=== PATIENT | male | born 1950 | race Caucasian/White ===

== ENCOUNTER 2021-10-31 11:23 | Outpatient (CLI) | payer MEDICARE, SELFPAY ==
--- NOTE | ~2021-10-31 | US_ITS ---
EXAMINATION: US venous doppler LE RT DATE: 10/31/2021 11:53 INDICATION: Right lower limb pain and swelling TECHNIQUE: Grayscale ultrasound images without and with compression and Doppler ultrasound images of the right lower extremity veins were obtained. COMPARISON: None. FINDINGS: The visualized portions of right common femoral vein, profunda (deep) femoral vein, femoral vein, pop liteal vein, peroneal trunk, posterior tibial veins, peroneal veins, gastrocnemius vein and greater s aphenous vein outflow are patent. 2.4 x 1.2 x 0.4 cm lenticular fluid collection at the right poplite al fossa. No abnormal masses or fluid collections identified in the anterior right lower leg in the r egion of reported bruising. IMPRESSION: 1. No deep venous thrombosis in the right lower limb. 2. 2.4 x 1.2 x 0.4 cm lenticular fluid collection at the right popliteal fossa most likely a small Ba ker's cyst with differential including hematoma. Reviewed, dictated and finalized at location B. IMPRESSION: 1. No deep venous thrombosis in the right lower limb. 2. 2.4 x 1.2 x 0.4 cm lenticular fluid collection at the right popliteal fossa most likely a small El's cyst with differential including hematoma.
== END 2021-10-31 11:24 | disposition home or self-care (01) ==
PROVIDERS: PCP Family Medicine Adolescent Medicine; Visit Provider Family Medicine Adolescent Medicine
DX: R60.0 Localized edema (principal)
CPT/HCPCS: 93971

== ENCOUNTER 2023-03-15 07:40 | Inpatient (IN) | payer MEDICARE, SELFPAY ==
[2023-03-15] VITALS (16 sets, daily range): BP systolic 139–181; BP diastolic 82–114; PULSE 52–60; RESP 14–21; TEMP 36.6–37.1; O2SAT 94–98
--- NOTE | ~2023-03-15 | MR_ITS ---
MRI of the brain Clinical History: Expressive aphasia Technique: Axial and sagittal T1-weighted images were acquired. These were followed by axial T2-weigh jean, diffusion weighted, gradient, and FLAIR images. Following intravenous administration of 20 cc Mu ltiHance gadolinium, T1-weighted fat-sat imaging was performed in the axial and coronal planes. Findings: There are wedge-shaped areas of restricted diffusion in the left frontal lobe near the ante rior insular cortex, and in the left parietal lobe. These are consistent with acute infarct. No intra cranial hemorrhage evident. There are mild background chronic microvascular ischemic changes in the p eriventricular white matter. Ventricles and subarachnoid spaces are unremarkable. Orbits are unremarkable. Paranasal sinuses and m astoid air cells are clear. Major intracranial flow voids are intact. Sagittal midline structures are intact. No abnormal postcontrast enhancement identified. 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 No intracranial hemorrhage. Mild background chronic microvascular ischemic change. Reviewed, dictated and finalized at location M. R AND CHASSIS INSPECTOR
--- NOTE | ~2023-03-15 | XR_ITS ---
EXAMINATION: XR chest 1V portable INDICATION: Confusion, stroke like symptoms TECHNIQUE: Portable AP chest at 0855 hours COMPARISON: None available FINDINGS: There are minimal airspace opacities of the left lung base. No pleural effusion or pneumoth orax. The cardiomediastinal silhouette is normal. IMPRESSION: 1. Left basilar airspace opacity, consistent with atelectasis versus pneumonia. Reviewed, dictated and finalized at location B. SERVICE WAITER/WAITRESS
--- NOTE | ~2023-03-15 | CT_ITS ---
CT ANGIOGRAM NECK AND HEAD History: CVA. Technique: Axial noncontrast imaging of the brain was performed. Serial spiral axial images through t he head and neck were then obtained during arterial phase IV injection of 100 cc of Omnipaque 350. 3- D postprocessing and MIP images were then reconstructed on the remote workstation. Dose reduction wilmer hnique was used on this scan by utilizing automated exposure control and iterative reconstruction wilmer hnique. The dose-length product (DLP) was 1835.58 mGy-cm. CTA neck findings: Bilateral vertebral arteries are patent, with right vertebral artery terminating as the right PICA, normal variant. Bilateral common carotid, internal carotid, and external carotid a rteries are patent. No large vessel occlusion. No stenosis or aneurysm. The proximal right internal c arotid artery demonstrates 0% stenosis relative to the normal distal artery lumen diameter. The proxi mal left internal carotid artery demonstrates 0% stenosis relative to the normal distal artery lumen diameter. Partially imaged small left pleural effusion present. CTA head findings: Distal vertebral arteries, basilar artery, and posterior cerebral arteries are pat ent. Distal internal carotid arteries, middle cerebral arteries, and anterior cerebral arteries are p atent. No large vessel occlusion. No stenosis or aneurysm. Axial noncontrast imaging of the brain is unremarkable. No intracranial hemorrhage, mass lesion, or a cute infarct identified. Humphreys-white differentiation is preserved. Ventricles and subarachnoid spaces are nondilated. Paranasal sinuses and mastoid air cells are clear. Impression: Unremarkable CTA of the head and neck. Unremarkable noncontrast CT of the brain. Partially imaged small left pleural effusion. Case discussed with Dr. Dickerson at 8:23 AM on 03/15/2023. Reviewed, dictated and finalized at location M. AL COMMUNICATIONS INSTRUCTOR Impression: Unremarkable CTA of the head and neck. Unremarkable noncontrast CT of the brain. Partially imaged small left pleural effusion. Case discussed with Dr. Dickerson at 8:23 AM on 03/15/2023.
--- NOTE | 2023-03-15 07:50 | ECG_ITS ---
Measurements Intervals [place] Rate: 56 P: 66 [place]: 311 QRS: -29 QRSD: 100 T: 47 QT: 436 QTc: 421 Interpretive Statements SINUS BRADYCARDIA WITH MARKED FIRST DEGREE AV BLOCK BORDERLINE R WAVE PROGRESSION, ANTERIOR LEADS ABNORMAL ECG NO PREVIOUS ECG AVAILABLE FOR COMPARISON Electronically Signed On 03-15-2023 10:03:00 EYEGLASS MAKER by Torey Stahl D.O.
--- NOTE | 2023-03-15 07:59 | ED.GENADULT ---
HPI - General Adult General Chief complaint: Suspected CVA Stated complaint: high blood pressure/confusion Time Seen by Provider: 03/15/23 07:49 History of Present Illness HPI narrative: Patient is a 72-year-old male who presents to the ER with new confusion. Last known well was 10 PM on 03/14/2023. 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 He has occasional speech that does not make sense for the situation. His work called at 6:30 AM and told his that he was too confused to be there so she went and picked him up and brought him here. Patient is not on any blood thinners other than a baby aspirin. He cannot provide a history. Related Data Home Medications Medication Instructions Recorded Confirmed aspirin 81 mg tablet,delayed 81 mg PO DAILY 10/09/21 03/15/23 release (Adult Aspirin Regimen) omeprazole 20 mg tablet,delayed 20 mg PO DAILY 10/09/21 03/15/23 release amlodipine 5 mg tablet 5 mg PO DAILY 03/15/23 03/15/23 atorvastatin 40 mg tablet 40 mg PO DAILY 03/15/23 03/15/23 doxazosin 4 mg tablet 4 mg PO DAILY 03/15/23 03/15/23 hydrochlorothiazide 25 mg tablet 25 mg PO DAILY 03/15/23 03/15/23 metformin 500 mg tablet,extended 500 mg PO DAILY 03/15/23 03/15/23 release 24 hr metoprolol succinate 100 mg 100 mg PO DAILY 03/15/23 03/15/23 tablet,extended release 24 hr potassium chloride 10 mEq 10 meq PO BID 03/15/23 03/15/23 tablet,extended release(part/cryst) Allergies Allergy/AdvReac Type Severity Reaction Status Date / Time acetazolamide AdvReac Unknown Unknown Verified 03/15/23 08:59 Review of Systems Review of Systems: ROS unobtainable: Yes unobtainable due to medical condition [facility] Past Medical History Medical History (Updated 03/15/23 @ 19:13 by Leon Dickerson MD) Essential (primary) hypertension Obstructive sleep apnea Pure hypercholesterolemia, unspecified Type 2 diabetes mellitus with diabetic polyneuropathy Surgical History Surgical History (Updated 03/15/23 @ 13:43 by Gunjan Morrison PA-C) History of appendectomy History of carpal tunnel release History of cervical spinal surgery (2010) C5 through C7 Family History Family History Father Acute myocardial infarction Lung cancer Mother Diabetes mellitus Social History Social History (Updated 03/15/23 @ 13:44 by Gunjan Morrison PA-C) Social History: Surrogate medical decision maker: Lorna Gray, spouse. Code status: Full code. Smoking status: Never smoker Second hand tobacco smoke exposure: No Alcohol intake: never Substance use: never Substance use type: does not use Lack of Transportation: No Lack of Food: Never True Current Housing: I Have Housing Concerned About Future Housing: No Difficulty Paying Gas/Electric Bills: No Difficulty Paying for Meds: No Currently Unemployed: No Education: High School Diploma/GED Difficulty w/ Childcare or Family Care: No Living arrangements: with family Occupation/Education: retired Spiritual care concerns: No Agree to blood products: Yes Exam Narrative: GENERAL: Well-appearing, well-nourished, and in no acute distress. HEAD: Normocephalic, atraumatic. EYES: PERRLA and EOMI. ENT: Nares clear, no rhinorrhea or epistaxis. Mucous membranes moist. NECK: Supple. CHEST: Clear to auscultation. No respiratory distress. HEART: Regular rate and rhythm. No murmur heard. Normal peripheral pulses. ABDOMEN: Soft, nontender, nondistended, normal active bowel sounds. EXTREMITIES: Normal range of motion. No edema. SKIN: Warm, dry, no rash. NEURO: No focal deficits. Alert and oriented x3. PSYCH: Normal mood and affect. Course Course Emergency Course: Patient resting comfortably. No change in status. Family updated on imaging and lab results. Neurology consulted. Admit to hospitalist service. No large vessel occlusion. Patient is not a
[2023-03-15 08:11] LABS: Estimated Glomerular Filt Rate > 60
--- NOTE | 2023-03-15 08:31 | PC.NURSE ---
RN asked pt his 's name, pt answered reciting numbers. Pt attempting to communicate, replies with reciting of numbers. Unable to open and close eyes on command, rubbing right hand & arm.
[2023-03-15 08:32] LABS: Basophils Percent Auto 0.6 % (0.2-1.2); Eosinophils Absolute Auto 0.2 K/mm3 (0-0.3); Hematocrit 42.3 % (42.0-52.0); Hemoglobin 14.4 g/dL (14.0-18.0); Immature Granulocyte Absolute 0.03 K/mm3 (0.00-0.031); Immature Granulocyte Percent A 0.4 % (0-0.5); Lymphocytes Absolute Auto 0.86 K/mm3 (0.9-3.2); Lymphocytes Percent Auto 11.8 % (18.3-44.2); Mean Corpuscular Hemoglobin 29.5 pg (26-34); Mean Corpuscular Volume 86.7 fl (80-100); Mean Platelet Volume 9.9 fl (7.4-10.4); Monocytes Absolute Auto 0.7 K/mm3 (0.1-0.6); Monocytes Percent Auto 9.2 % (2.6-8.5); Neutrophils Absolute Auto 5.5 K/mm3 (1.3-6.7); Platelet Count Result 185 k/mm3 (150-375); Red Blood Count 4.88 M/mm3 (4.6-6.20); Red Cell Distribution Width 13.6 % (11.5-14.5); White Blood Count 7.3 K/mm3 (4.5-10.0)
[2023-03-15 08:42] LABS: Alanine Aminotransferase 46 U/L (6-50); Albumin Level 4.1 g/dL (3.5-5.1); Alkaline Phosphatase 47 U/L (38-126); Anion Gap 7 mmol/L (8-16); Aspartate Amino Transferase 32 U/L (17-59); Bilirubin,Total 1.1 mg/dL (0.2-1.3); Blood Urea Nitrogen 14 mg/dL (9-20); Carbon Dioxide 28 mmol/L (22-30); Chloride 101 mmol/L (98-107); Estimated CRCL calculation 79 ml/min; Estimated Glomerular Filt Rate > 60; Glucose 139 mg/dL (65-110); Potassium 3.3 mmol/L (3.4-5.0); Sodium 136 mmol/L (137-145)
[2023-03-15 08:43] LABS: INR 1.1; Prothrombin Time 14.8 Seconds (11.1-14.7)
[2023-03-15 08:45] LABS: Partial Thromboplastin Time 68.6 SECONDS (22.3-36.8)
[2023-03-15 08:51] LABS: Appearance Urine Clear (Clear); Bilirubin Urine Negative (Negative); Blood Urine Negative (Negative); Color Urine Yellow (Yellow); Glucose Urine UA Negative (Negative); Ketones Urine Negative (Negative); Leukocyte Esterase Ur Negative LEU/UL (Negative); Nitrate Urine Negative (Negative); Protein Urine Negative (Negative); Specific Grav Ur 1.035 (1.001-1.035); pH Urine 7.5 (5.0-9.0)
[2023-03-15 08:53] LABS: Troponin I < 0.012 ng/mL (0.000-0.034)
--- NOTE | 2023-03-15 09:17 | PC.NURSE ---
Lab called inquiring about UA results. Ana states will be released in a couple of minutes
[2023-03-15 09:18] LABS: Add Urine Microscopic? NO
--- NOTE | 2023-03-15 12:18 | PC.NURSE ---
1115 c/o mild JERNIGAN 06/19, ERP notified
[2023-03-15] MEDS: HYDROcodone/acetaminophen (*CRX) 5-325 MG TABLET 1 TAB PO (12:41)
--- NOTE | 2023-03-15 12:43 | ADMGEN ---
This patient, Bi Gray, was admitted to 2 Medical Room 259-. Patient/family oriented to hospital policies and general routines including ID bracelet, bed and alarms, visiting hours, pain management, procedures, bathroom and other care routines, personal items, smoking policy, room service/diet, and visiting hours. Information on how to activate the Rapid Response Team has been discussed. Patient/Family are encouraged to report perceived risks to care and to ask questions if they do not understand what they are told or what they should do.
--- NOTE | 2023-03-15 13:37 | PM.IMHP ---
H&P: HPI History of Present Illness Date/Time: 03/15/23 14:00 Chief Complaint: Confusion. Narrative: This is a pleasant 72-year-old male with hypertension, hyperlipidemia, type 2 diabetes mellitus, benign prostatic hyperplasia, and gastroesophageal reflux disease who presented to the emergency department via private vehicle accompanied by his for evaluation of confusion. The patient provides the following history and his provides additional information with the patient's permission. He was in his usual state of health when he went to bed last night at approximately 22:00. 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 He drove the less than 1 mi to the farm for work. received a phone call perhaps an hour thereafter stating that she needed to come pick the patient up as he was confused and he was brought in for evaluation. The patient is aware of the apparent confusion he seems to have some component of expressive aphasia. He also complains of numbness and tingling and to some extent some pain in his right hand. He denies vertigo, vision changes, facial droop, difficulty swallowing, and focal weakness. In the ED: He was afebrile on arrival with a blood pressure of 181/114. Labs did not show any significant findings with the only outliers being a sodium of 136, potassium 3.3, glucose 139. Urinalysis was unremarkable. Brain CT and CTA of the head and neck were unremarkable. Chest x-ray showed left basilar airspace opacity consistent with atelectasis versus pneumonia. EKG showed sinus bradycardia with marked first-degree AV block and borderline R-wave progression in the anterior leads. He is being admitted in this setting for further workup. Review of Systems Review of Systems: Twelve systems were reviewed and are negative except for as per HPI. [facility] Past Medical History Medical History (Updated 03/15/23 @ 19:13 by Leon Dickerson MD) Essential (primary) hypertension Obstructive sleep apnea Pure hypercholesterolemia, unspecified Type 2 diabetes mellitus with diabetic polyneuropathy Surgical History Surgical History (Updated 03/15/23 @ 13:43 by Gunjan Morrison PA-C) History of appendectomy History of carpal tunnel release History of cervical spinal surgery (2010) C5 through C7 Family History Family History Father Acute myocardial infarction Lung cancer Mother Diabetes mellitus Social History Social History (Updated 03/15/23 @ 13:44 by Gunjan Morrison PA-C) Social History: Surrogate medical decision maker: Lorna Gray, spouse. Code status: Full code. Smoking status: Never smoker Second hand tobacco smoke exposure: No Alcohol intake: never Substance use: never Substance use type: does not use Lack of Transportation: No Lack of Food: Never True Current Housing: I Have Housing Concerned About Future Housing: No Difficulty Paying Gas/Electric Bills: No Difficulty Paying for Meds: No Currently Unemployed: No Education: High School Diploma/GED Difficulty w/ Childcare or Family Care: No Living arrangements: with family Occupation/Education: retired Spiritual care concerns: No Agree to blood products: Yes Meds Home Medications and Allergies Home Medications Medication Instructions Recorded Confirmed Type aspirin 81 mg tablet,delayed 81 mg PO DAILY 10/09/21 03/15/23 History release (Adult Aspirin Regimen) omeprazole 20 mg tablet,delayed 20 mg PO DAILY 10/09/21 03/15/23 History release diclofenac sodium 75 mg 75 mg PO BID #180 tabs 10/17/22 03/15/23 Rx tablet,delayed release amlodipine 5 mg tablet 5 mg PO DAILY 03/15/23 03/15/23 History atorvastatin 40 mg
[2023-03-15 14:31] LABS: Hemoglobin A1C 6.5 % (<5.7)
[2023-03-15 14:42] LABS: Ammonia < 9 umol/L (9-30)
[2023-03-15] MEDS: SODIUM CHLORIDE 0.9% IV 1,000 ML 100 ML IV CONT (14:48)
[2023-03-15] MEDS: POTASSIUM CHLORIDE 20 MEQ ER TABLET PO (14:48)
[2023-03-15 15:28] LABS: Folic Acid 19.1 ng/mL (2.76->20)
[2023-03-15 17:06] LABS: Glucose Point of Care 124 mg/dl (65-105)
[2023-03-15 20:54] LABS: Glucose Point of Care 129 mg/dl (65-105)
[2023-03-16] VITALS (11 sets, daily range): BP systolic 140–164; BP diastolic 76–86; PULSE 56–68; RESP 16–18; TEMP 36.6–36.8; O2SAT 96–97
--- NOTE | 2023-03-16 | ECHO_ITS ---
Patient Info Name: Bi Gray Age: 72 years : 1950 Gender: Male Ht: 73 in Wt: 249 lbs BSA: 2.44 m2 HR: 67 bpm BP: 150 / 84 mmHg Heart Rhythm: Sinus Rhythm Technical Quality: Good Exam Date: 03/16/2023 11:18 AM Exam Location: Echo Lab Patient Status: Outpatient Admit Date: 03/15/2023 Staff Ordering Physician: Gunjan Morrison PA-C Tobacco Grower: Shala Alfredo RDCS Attending Provider: Zach Su MD Referring Physician: Tamiko WAN; Exam Type: CA echo doppler w bubble study Study Info Indications - expressive aphasia, HTN Complete two-dimensional, color flow and Doppler transthoracic echocardiogram is performed. Summary 1. Complete two-dimensional, color flow and Doppler transthoracic echocardiogram is performed. 2. Left ventricular chamber dimension is normal. 3. Left ventricular systolic function is normal, estimated at 60-65%. 4. There is mildly increased left ventricular wall thickness. 5. The left ventricular diastolic function is grade III diastolic dysfunction. 6. Right ventricular systolic function is normal. 7. There is mild mitral valve regurgitation. 8. There is trivial pericardial effusion. Left Ventricle Left ventricular chamber dimension is normal. Left ventricular systolic function is normal, estimated at 60-65%. There is mildly increased left ventricular wall thickness. The left ventricular diastolic function is grade III diastolic dysfunction. Right Ventricle Right ventricular chamber dimension is normal. Right ventricular systolic function is normal. Left Atria Left atrial chamber dimension is normal. Right Atria Right atrial chamber dimension is normal. Atrial Septum Intact interatrial septum visualized by color flow and agitated saline imaging. Aortic Valve The aortic valve is not well visualized. There is no aortic valve stenosis. There is no aortic valve regurgitation. There is mild aortic valve calcification. Pulmonic Valve The pulmonic valve is not well visualized. Mitral Valve There is mild mitral valve regurgitation. Tricuspid Valve There is trace tricuspid valve regurgitation. Pericardium/Pleural There is trivial pericardial effusion. Inferior Vena Cava Normal inferior vena cava with >50% collapse upon inspiration consistent with normal right atrial pressure, 3 mmHg. Aorta The aortic root size at the sinus of Valsalva is normal. Left Ventricular Outflow Tract Name Value Normal LVOT 2D LVOT Diameter 1.9 cm LVOT Doppler LVOT Peak Gradient 4 mmHg LVOT Mean Gradient 3 mmHg LVOT VTI 23 cm LVOT VTI/AV VTI Ratio 0.9 LVOT Stroke Volume 68 ml LVOT CO 4.2 l/min LVOT CI 1.7 l/min/m2 Pulmonic Valve Name Value Normal RVOT Doppler RVOT Peak Gradient
[2023-03-16 06:14] LABS: Hematocrit 43.4 % (42.0-52.0); Hemoglobin 14.8 g/dL (14.0-18.0); Mean Corpuscular HGB Conc 34.1 g/dl (32-36); Mean Corpuscular Hemoglobin 29.8 pg (26-34); Mean Corpuscular Volume 87.3 fl (80-100); Mean Platelet Volume 10.7 fl (7.4-10.4); Platelet Count Result 201 k/mm3 (150-375); Red Blood Count 4.97 M/mm3 (4.6-6.20); Red Cell Distribution Width 13.6 % (11.5-14.5); White Blood Count 9.5 K/mm3 (4.5-10.0)
[2023-03-16 06:24] LABS: Alanine Aminotransferase 40 U/L (6-50); Albumin Level 4.1 g/dL (3.5-5.1); Alkaline Phosphatase 49 U/L (38-126); Anion Gap 6 mmol/L (8-16); Aspartate Amino Transferase 28 U/L (17-59); Bilirubin,Total 1.2 mg/dL (0.2-1.3); Blood Urea Nitrogen 12 mg/dL (9-20); Calcium 9.1 mg/dL (8.4-10.2); Carbon Dioxide 25 mmol/L (22-30); Chloride 105 mmol/L (98-107); Cholesterol 265 mg/dL (0-200); Estimated CRCL calculation 87 ml/min; Estimated Glomerular Filt Rate > 60; Glucose 125 mg/dL (65-110); HDL Direct 28 mg/dL; Magnesium 1.9 mg/dL (1.6-2.3); Potassium 3.6 mmol/L (3.4-5.0); Sodium 136 mmol/L (137-145); Triglycerides 204 mg/dL (<150)
[2023-03-16 06:35] LABS: LDL Cholesterol Direct 142 mg/dL
[2023-03-16 08:20] LABS: Glucose Point of Care 142 mg/dl (65-105)
[2023-03-16] MEDS: ATORVASTATIN 40 MG TABLET PO (08:34)
[2023-03-16] MEDS: DOXAZOSIN MESYLATE 4 MG TABLET PO (08:34)
[2023-03-16] MEDS: DICLOFENAC SOD 75 MG TABLET.EC PO ×2 (08:34→20:10)
[2023-03-16] MEDS: POTASSIUM CHLORIDE 10 MEQ ER TABLET PO ×2 (08:34→17:17)
[2023-03-16] MEDS: amLODIPine BESYLATE 5 MG TABLET PO (08:34)
[2023-03-16] MEDS: ASPIRIN 81 MG ENTERIC TABLET PO (08:35)
[2023-03-16] MEDS: PANTOPRAZOLE 40 MG TABLET PO (08:35)
[2023-03-16] MEDS: METOPROLOL SUCCINATE EXT REL 100 MG TABCR PO (08:35)
--- NOTE | 2023-03-16 09:30 | WPDNEURCNPN ---
Assessment and Plan Assessment and plan (1) Acute CVA (cerebrovascular accident): Code(s): I63.9 - Cerebral infarction, unspecified Status: Acute (2) Expressive aphasia: Code(s): R47.01 - Aphasia Status: Acute (3) Pure hypercholesterolemia, unspecified: Code(s): E78.00 - Pure hypercholesterolemia, unspecified Status: Acute (4) Type 2 diabetes mellitus with diabetic polyneuropathy: Code(s): E11.42 - Type 2 diabetes mellitus with diabetic polyneuropathy Status: Acute Plan 1. Expressive dysphagia documented abnormal MRI. 2. History of hypertension 3. Type 2 diabetes mellitus 4. History of obstructive sleep apnea. Patient will undergo surface echocardiogram and in the meantime continue aspirin 81 mg daily for long duration and Plavix 75 mg daily for the next 6 weeks also he will benefit from the stroke we have as he has never had stroke before. He is already taking atorvastatin 40 mg daily. And surface echocardiogram will be obtained before any further studies. Consult date: 03/16/23 HPI: Bi Gray is a 72 year old male Admitted to the hospital through the emergency room for the complaints of new onset confusion and also with information that he was last known well around 10:00 p.m. on March 14, 2023 to go to work at [employer] and was confused as per his . He had occasional speech that was not making sense for the situation his work called at 6:30 a.m. and told his that he was too confused to be with their so she went and picked him up and brought him to the emergency room. Patient had been taking baby aspirin daily but not any strong blood thinner. His medications at the time of visit to the ER include aspirin 81 mg daily, amlodipine 5 mg daily, doxazosin 4 mg daily, hydrochlorothiazide 25 mg daily, metformin 500 mg Q 24 hours extended release, metoprolol 100 mg daily, potassium supplements. He is allergic to acetazolamide and in the past as ongoing history of 1. Hypertension 2. Obstructive sleep apnea 3. Hypercholesterolemia 5. Type 2 diabetes mellitus with diabetic neuropathy. He has also undergone surgery for the cervical spine C5 through C7 in 2010 addition to the carpal tunnel releases. His never smoker never a drinker substance use initial exam in the emergency room was documented as normal vital signs were normal except blood pressure 181/114 CBC was normal, basic metabolic panel was fairly normal except borderline potassium 3.3 and sodium 136 he was admitted to the hospital with stroke scale of 1, his initial x-ray of the chest revealed left basilar airspace opacity consistent with atelectasis versus pneumonia head neck CTA was normal but MRI of the brain documented acute wedge-shaped infarct in the left middle cerebral artery distribution involving the left frontal and parietal lobe Review of Systems Review of Systems: All systems reviewed & are unremarkable except as noted in HPI and below PMFSH Past Medical History Medical History (Updated 03/15/23 @ 19:13 by Leon Dickerson MD) Essential (primary) hypertension Obstructive sleep apnea Pure hypercholesterolemia, unspecified Type 2 diabetes mellitus with diabetic polyneuropathy Surgical History Surgical History (Updated 03/15/23 @ 13:43 by Gunjan Morrison PA-C) History of appendectomy History of carpal tunnel release History of cervical spinal surgery (2010) C5 through C7 Family History Family History Father Acute myocardial infarction Lung cancer Mother Diabetes mellitus Social History Social History (Updated 03/15/23 @ 13:44 by Gunjan Morrison PA-C) Social History: Surrogate medical decision maker: Lorna Gray, spouse. Code status: Full code. Smoking status: Never smoker Second hand tobacco smoke exposure: No Alcohol intake: never Substance use: never Substance use type: does not use Lack of Tra
--- NOTE | 2023-03-16 11:50 | PM.IMPN ---
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 Continue aspirin 81 mg daily and atorvastatin 40 mg daily. (2) Confusion: Code(s): R41.0 - Disorientation, unspecified Status: Acute Assessment and Plan: Likely due to CVA above TSH, B12, ammonia, and urine drug screen wnl (3) Essential (primary) hypertension: Code(s): I10 - Essential (primary) hypertension Status: Acute Assessment and Plan: Blood pressures were reviewed 03/16 Allow permissive hypertension for the next 24 to 48 hours. Continue amlodipine 5 mg and metoprolol 100 mg daily. Hydrochlorothiazide on hold for now given mild electrolyte abnormalities. (4) Type 2 diabetes mellitus with diabetic polyneuropathy: Code(s): E11.42 - Type 2 diabetes mellitus with diabetic polyneuropathy Status: Acute Assessment and Plan: Hold metformin as he received IV contrast. Initiate sliding scale insulin, Accu-Cheks, and hypoglycemic protocol. Check hemoglobin A1c. Blood glucose reviewed 03/16 (5) Obstructive sleep apnea: Code(s): G47.33 - Obstructive sleep apnea (adult) (pediatric) Status: Acute Assessment and Plan: CPAP will be provided for the patient to use while hospitalized. Plan DVT prophylaxis with SCDs GI prophylaxis not indicated Code status full code Subjective Date/time seen: 03/16/23 11:50 Interval history: 72-year-old male with hypertension, hyperlipidemia, type 2 diabetes mellitus, benign prostatic hyperplasia, and gastroesophageal reflux disease here with confusion and currently being treated for acute left MCA CVA. No overnight events noted. No chest pain or shortness of breath. No nausea, vomiting or diarrhea. No fevers or chills. Still with significant aphasia. Review of Systems Review of Systems: 12 point review of systems was assessed and was negative except as noted in the HPI Exam Narrative: General: No acute distress, alert and oriented per baseline HEENT: Atraumatic, normocephalic, mucous membranes moist CV: Regular rate and rhythm, S1, S2 Lungs: Clear to auscultation bilaterally, no rales or crackles noted, no wheezes, good air entry Abdomen: Soft, nontender, nondistended Extremities: Normal to inspection Skin: No rashes noted, no lesions or wounds seen Psych: Unable to assess Neuro: CN 2-12 grossly intact, expressive aphasia noted, UE + LE strength and sensation normal and intact Objective Data Vital Signs Vital Signs: Vital Signs - 24 hr 03/15/23 12:00 03/15/23 12:01 03/15/23 12:15 Temperature Pulse Rate 53 L 52 L 55 L Respiratory Rate 21 H 21 H 19 Blood Pressure 175/93 H Pulse Oximetry Oxygen Delivery 03/15/23 14:33 03/15/23 15:52 03/15/23 16:00 Temperature 98.3 F Pulse Rate 57 L 57 L Respiratory Rate 16 Blood Pressure 154/83 H Pulse Oximetry 96 Oxygen Delivery Room Air 03/15/23 21:31 03/15/23 20:00 03/15/23 20:00 Temperature 97.8 F Pulse Rate 60 59 L Respiratory Rate 18 Blood Pressure 139/82 Pulse Oximetry 96 Oxygen Delivery Room Air 03/16/23 00:00 03/16/23 04:00 03/16/23 05:18 Temperature 98.1 F Pulse Rate 68 63 67 Respiratory Rate 18 Blood Pressure 150/84 H Pulse Oximetry 97 Oxygen Delivery 03/16/23 08:35 03/16/23 08:08 Temperature Pulse Rate 67 62 Respiratory Rate 16 Blood Pressure 164/86 H Pulse Oximetry 96 Oxygen Delivery Intake/Output Intake/Output: Intake & Output 03/14/23 03/14/23 03/15/23 03/16/23 00:59 23:59 23:59 23:59 Intake Total 1010 1390 Output Total 400 900 Balance 610 490 Meds/Results Medications: Active Medications Generic Name Dose Route
[2023-03-16 12:10] LABS: Glucose Point of Care 209 mg/dl (65-105)
[2023-03-16] MEDS: INSULIN ASPART (*BKC) 100 UNITS/ML SUB-Q (12:15)
--- NOTE | 2023-03-16 13:58 | PC.NURSE ---
On 03/16/23, the student, [Shelby Singh], provided care and completed [facility] documentation on this patient. I have reviewed the student's documentation and agree with the findings.
[2023-03-16 17:17] LABS: Glucose Point of Care 113 mg/dl (65-105)
[2023-03-16 20:59] LABS: Glucose Point of Care 137 mg/dl (65-105)
[2023-03-17] VITALS (8 sets, daily range): BP systolic 150–154; BP diastolic 78–84; PULSE 52–60; RESP 18; TEMP 36.4–36.6; O2SAT 95–99
[2023-03-17 05:17] LABS: Basophils Percent Auto 0.5 % (0.2-1.2); Eosinophils Absolute Auto 0.3 K/mm3 (0-0.3); Eosinophils Percent Auto 4.5 % (0-4.4); Hematocrit 44.6 % (42.0-52.0); Hemoglobin 14.7 g/dL (14.0-18.0); Immature Granulocyte Absolute 0.02 K/mm3 (0.00-0.031); Immature Granulocyte Percent A 0.3 % (0-0.5); Lymphocytes Absolute Auto 1.53 K/mm3 (0.9-3.2); Lymphocytes Percent Auto 20.2 % (18.3-44.2); Mean Corpuscular Hemoglobin 29.3 pg (26-34); Mean Platelet Volume 10.8 fl (7.4-10.4); Monocytes Absolute Auto 1.1 K/mm3 (0.1-0.6); Monocytes Percent Auto 14.9 % (2.6-8.5); Neutrophils Absolute Auto 4.5 K/mm3 (1.3-6.7); Neutrophils Percent Auto 59.6 % (45.5-73.1); Platelet Count Result 195 k/mm3 (150-375); Red Blood Count 5.01 M/mm3 (4.6-6.20); Red Cell Distribution Width 13.6 % (11.5-14.5); White Blood Count 7.6 K/mm3 (4.5-10.0)
[2023-03-17 05:29] LABS: Alanine Aminotransferase 35 U/L (6-50); Albumin Level 3.9 g/dL (3.5-5.1); Alkaline Phosphatase 50 U/L (38-126); Anion Gap 6 mmol/L (8-16); Aspartate Amino Transferase 25 U/L (17-59); Bilirubin,Total 1.4 mg/dL (0.2-1.3); Blood Urea Nitrogen 11 mg/dL (9-20); Calcium 8.9 mg/dL (8.4-10.2); Carbon Dioxide 27 mmol/L (22-30); Chloride 106 mmol/L (98-107); Estimated CRCL calculation 79 ml/min; Estimated Glomerular Filt Rate > 60; Glucose 124 mg/dL (65-110); Potassium 3.6 mmol/L (3.4-5.0); Sodium 139 mmol/L (137-145)
[2023-03-17 08:43] LABS: Glucose Point of Care 134 mg/dl (65-105)
[2023-03-17] MEDS: ASPIRIN 81 MG ENTERIC TABLET PO (09:17)
[2023-03-17] MEDS: DOXAZOSIN MESYLATE 4 MG TABLET PO (09:17)
[2023-03-17] MEDS: PANTOPRAZOLE 40 MG TABLET PO (09:17)
[2023-03-17] MEDS: ATORVASTATIN 40 MG TABLET PO (09:17)
[2023-03-17] MEDS: CLOPIDOGREL BISULFATE 75 MG TABLET PO (09:17)
[2023-03-17] MEDS: POTASSIUM CHLORIDE 10 MEQ ER TABLET PO ×2 (09:18→17:59)
[2023-03-17] MEDS: METOPROLOL SUCCINATE EXT REL 100 MG TABCR PO (09:18)
[2023-03-17] MEDS: amLODIPine BESYLATE 5 MG TABLET PO (09:18)
[2023-03-17] MEDS: ACETAMINOPHEN 325 MG TABLET 650 MG PO (09:20)
[2023-03-17 12:14] LABS: Glucose Point of Care 121 mg/dl (65-105)
--- NOTE | 2023-03-17 14:58 | WPDNEUROPN ---
Subjective Date/time seen: 03/17/23 14:58 Interval history: Status post acute CVA with expressive dysphagia along with hypercholesterolemia, type 2 diabetes mellitus with diabetic neuropathy, routine lab studies normal, brain MRI with wedge-shaped infarct in the distribution of the left middle cerebral artery involving the left frontal and parietal lobes without evidence of any secondary hemorrhage, head and neck CTA negative, surface echocardiogram normal, medications include aspirin 81mg daily, atorvastatin 40mg daily, Plavix 75mg daily for 6 weeks and in addition insulin therapy his examination remains unchanged. He is awake alert cooperative in no obvious acute distress follows the instructions very well has obviously motor dysphagia but very pleasant 82 all the family members present and all the findings were discussed and explained particularly to his if everything is clear with other physician he will be discharged and follow up in the office as an outpatient he was not transferred to rehab because he did not have any significant motor deficit but he will definitely need a speech therapy Objective Data Vital Signs Vital Signs: Vital Signs - 24 hr 03/16/23 16:00 03/16/23 21:21 03/16/23 20:00 Temperature 36.8 C Pulse Rate 58 L 59 L 56 L Respiratory Rate 18 Blood Pressure 140/76 Pulse Oximetry 97 Oxygen Delivery Fraction of Inspired Oxygen 03/17/23 00:00 03/17/23 04:00 03/17/23 04:57 Temperature 36.6 C Pulse Rate 52 L 59 L 57 L Respiratory Rate 18 Blood Pressure 150/84 H Pulse Oximetry 99 Oxygen Delivery Fraction of Inspired Oxygen 03/17/23 08:24 03/17/23 08:00 03/17/23 12:00 Temperature Pulse Rate 55 L 60 Respiratory Rate Blood Pressure Pulse Oximetry 95 Oxygen Delivery Room Air Fraction of Inspired Oxygen 21 Intake/Output Intake/Output: Intake & Output 03/14/23 03/15/23 03/16/23 03/17/23 23:59 23:59 23:59 23:59 Intake Total 1010 2420 970 Output Total 400 900 400 Balance 610 1520 570 Meds/Results Medications: Active Medications Generic Name Dose Route Start Last Admin Trade Name Freq PRN Reason Stop Dose Admin Acetaminophen 650 mg 03/15/23 10:35 03/17/23 09:20 Acetaminophen 325 Mg Tablet PO 650 mg Q4H PRN Administration Mild Pain (1-3) or Fever Amlodipine Besylate 5 mg 03/16/23 09:00 03/17/23 09:18 Amlodipine Besylate 5 Mg Tablet PO 5 mg DAILY LAUREN Administration Aspirin 81 mg 03/16/23 09:00 03/17/23 09:17 Aspirin 81 Mg Enteric Tablet PO 81 mg DAILY LAUREN Administration Atorvastatin Calcium 40 mg 03/16/23 09:00 03/17/23 09:17 Atorvastatin 40 Mg Tablet PO 40 mg DAILY LAUREN Administration Clopidogrel Bisulfate 75 mg 03/17/23 09:00 03/17/23 09:17 Clopidogrel Bisulfate 75 Mg Tablet PO 75 mg QAM LAUREN Administration Dextrose 12.5 gm 03/15/23 13:51 Dextrose 50% 25 Gm/50 Ml Syringe IV PUSH PRN PRN Hypoglycemia Protocol Doxazosin Mesylate 4 mg 03/16/23 09:00 03/17/23 09:17 Doxazosin Mesylate 4 Mg Tablet PO 4 mg DAILY LAUREN Administration Glucagon 1 mg 03/15/23 13:51 Glucagon For Inj 1 Mg Vial IM PRN PRN Hypoglycemia Protocol Glucose 15 gm 03/15/23 13:51 Glucose Oral Gel 15 Gm Of Glucse In 37.5 Gm Tube PO PRN PRN Hypoglycemia Protocol Dextrose 1,000 mls @ 100 mls/hr 03/15/23 13:51 Dextrose 5% 1,000 Ml IVPB PRN PRN Hypoglycemia Protocol Insulin Aspart 2 - 5 units 03/15/23 17:00 03/17/23 13:27 Insulin Aspart (*Bkc) 100 Units/Ml SUB-Q Not Given TIDWM COUNT INCLUDES THE [facility] Protocol Insulin Aspart 1 - 2 units 03/15/23 21:00 03/16/23 20:15 Insulin Aspart (*Bkc) 100 Units/Ml SUB-Q Not Given HS COUNT INCLUDES THE [facility] Protocol Metoprolol Succinate 100 mg 03/16/23 09:00 03/17/23 09:18 Metoprolol Succinate Ext Rel 100 Mg Tabcr PO 100 mg DAILY LAUREN Administration Ondansetron HCl 4 mg 03/15
--- NOTE | 2023-03-17 16:02 | PM.DS ---
DS: Admitting Diagnosis Discharge Date 03/17/23 Admitting Diagnosis Confusion DS: Discharge Diagnosis Discharge Diagnosis (1) Expressive aphasia: Code(s): R47.01 - Aphasia Status: Acute (2) Acute CVA (cerebrovascular accident): Code(s): I63.9 - Cerebral infarction, unspecified Status: Acute (3) Confusion: Code(s): R41.0 - Disorientation, unspecified Status: Acute (4) Essential (primary) hypertension: Code(s): I10 - Essential (primary) hypertension Status: Acute (5) Type 2 diabetes mellitus with diabetic polyneuropathy: Code(s): E11.42 - Type 2 diabetes mellitus with diabetic polyneuropathy Status: Acute (6) Obstructive sleep apnea: Code(s): G47.33 - Obstructive sleep apnea (adult) (pediatric) Status: Acute (7) Diastolic dysfunction: Code(s): I51.89 - Other ill-defined heart diseases Status: Acute DS: Summary Hospital Course Reason for hospitalization: 72-year-old male with hypertension, hyperlipidemia, type 2 diabetes mellitus, benign prostatic hyperplasia, and gastroesophageal reflux disease who presented to the emergency department via private vehicle accompanied by his for evaluation of confusion. Please see H&P for details. Hospital Course: Patient presents with confusion. He was afebrile on arrival with a blood pressure of 181/114. Labs did not show any significant findings with the only outliers being a sodium of 136, potassium 3.3, glucose 139. Urinalysis was unremarkable. Brain CT and CTA of the head and neck were unremarkable. Chest x-ray showed left basilar airspace opacity consistent with atelectasis versus pneumonia. EKG showed sinus bradycardia with marked first-degree AV block and borderline R-wave progression in the anterior leads. He was continued on his ASA and Lipitor. Echo showing EF 0-65%, Grade III diastolic dysfunction and mild mitral regurgitation. MRI brain showing acute swedge shaped infarcts in the left MCA distribution involving the left frontal and parietal lobes. No hemorrhage. PTT was elevated so antiphospholipid Ab panel drawn. He worked with PT/OT/ST. He passed his bedside swallow evaluation. He did well with PT/OT. He had expressive aphasia. Neuro consulted. Plavix added. BP improved; his HCTZ was held but resumed at discharge so blood pressure should continue to improve. LDL was 142. Lipitor was advanced. A1c was 6.5. He overall did well and was able to be discharged home on 03/17/23. Status at Discharge Cognitive/behavioral status at discharge: stable Time Spent with Patient Time attestation: Total time spent providing and/or coordinating discharge services: 35 minutes Time spent: Greater than 30 minutes Exam Narrative: AF 97.6 154/78 60 18 95% ra Gen - NARD Chest - CTA bilaterally, nml RR CV - RRR S1/S2. Tele showing bradycardia at times. Abd - Soft, NT/ND, Positive BS Ext - No pedal edema Neuro - Awake and alert. Nml strength. expressive aphasia. follows commands Psych - Nml mood and affect Skin - Warm and dry DS: Data Data Completed and Pending Labs on day of discharge: Labs from last 24 hours 03/17/23 03/17/23 03/17/23 12:12 08:38 04:26 WBC 7.6 RBC 5.01 Hgb 14.7 Hct 44.6 MCV 89.0 MCH 29.3 MCHC 33.0 RDW 13.6 Plt Count 195 MPV 10.8 H Immature Gran % (Auto) 0.3 Neut % (Auto) 59.6 Lymph % (Auto) 20.2 [place] % (Auto) 14.9 H Eos % (Auto) 4.5 H Baso % (Auto) 0.5 Lymph # (Auto) 1.53 [place] # (Auto) 1.1 H Eos # (Auto) 0.3 Baso # (Auto) 0.0 Abs Immat Gran (auto) 0.02 Absolute Neuts (auto) 4.5 Absolute Nucleated RBC 0.0 Nucleated RBC % 0.0 Sodium 139 Potassium 3.6 Chloride 106 Carbon Dioxide 27 Anion Gap 6 L BUN 11 Creatinine 1.00 Estim Creat Clear Calc 79 Estimated GFR > 60 Glucose 124 H POC Capillary Glucose 121 H 134 H Calcium 8.9 Total Bi
[2023-03-17 17:18] LABS: Glucose Point of Care 119 mg/dl (65-105)
[2023-03-22 19:05] LABS: Anti Cardio Antibody IgM <2.0 MPL-U/mL (<20.0); Anti Cardiolipin Antibody IgA 6.8 APL-U/mL (<20.0); Anti Cardiolipin Antibody IgG 7.3 GPL-U/mL (<20.0); PS/PT AB IgG <9 U (<=30); PS/PT AB IgM <9 U (<=30)
[2023-03-22 21:50] LABS: Lupus dRVVT Screen 33 sec (<=45); PTT-LA Screen 37 sec (<=40)
--- NOTE | 2023-03-25 09:47 | PC.NURSE ---
Lupus AC- anticoagulant not detected. Antiphospholipid Ab panel shown to Dr. Lao.
--- NOTE | 2023-03-31 07:26 | PC.NURSE ---
Antiphospholipid panel results faxed to Dr. Oviedo. Dr. Lao aware of findings.
== END 2023-03-17 18:25 | disposition home or self-care (01) | DRG 66 ==
LOC: ANHED 08:45 → ANH2MED 12:16
PROVIDERS: Physician Assistant; Student in an Organized Health Care Education/Training Program; Admitting Provider Hospitalist; Emergency Provider Emergency Medicine; PCP Family Medicine Adolescent Medicine; Visit Provider Internal Medicine
DX: I63.512 Cerebral infarction due to unspecified occlusion or stenosis of left middle cerebral artery (principal); R47.01 Aphasia; I10 Essential (primary) hypertension; I51.89 Other ill-defined heart diseases; E78.00 Pure hypercholesterolemia, unspecified; E11.42 Type 2 diabetes mellitus with diabetic polyneuropathy; R41.0 Disorientation, unspecified; R29.702 NIHSS score 2; K21.9 Gastro-esophageal reflux disease without esophagitis; G47.33 Obstructive sleep apnea (adult) (pediatric); N40.0 Benign prostatic hyperplasia without lower urinary tract symptoms; Z79.82 Long term (current) use of aspirin
CPT/HCPCS: 36415; 70496; 70498; 70553; 71045; 80053; 80061; 81003; 82140; 82607; 82746; 82948; 83036; 83735; 84443; 84484; 85025; 85027; 85610; 85613; 85730; 86146; 92507; 92523; 92610; 93005; 93306; 96361; 96375; 97165; 99285; A9270; A9577; G0378; J1815; J7030; Q9967

== ENCOUNTER 2023-10-01 17:39 | Emergency (ER) | payer MEDICARE, SELFPAY ==
[2023-10-01] VITALS (11 sets, daily range): BP systolic 132–158; BP diastolic 81–105; PULSE 62–65; RESP 15–24; TEMP 36.5–36.8; O2SAT 95–98
--- NOTE | ~2023-10-01 | XR_ITS ---
EXAMINATION: XR chest 1V portable DATE: 10/01/2023 19:21 INDICATION: Soreness of breath, chest pain and cough TECHNIQUE: frontal view of the chest was obtained. COMPARISON: Chest radiograph dated 03/15/2023 FINDINGS: The lungs remain clear with no focal airspace opacities, pulmonary edema, pleural effusion or pneumot horax. The cardiomediastinal silhouette is normal. Interbody bone graft cages for anterior spinal fus ion at C5-C6 and C6-C7. IMPRESSION: 1. No acute cardiopulmonary disease. Reviewed, dictated and finalized at location A.
--- NOTE | ~2023-10-01 | CT_ITS ---
EXAMINATION: CTA chest PE protocol DATE: 10/01/2023 21:56 INDICATION: Hypertension and new onset atrial flutter TECHNIQUE: Computed tomography (CT) pulmonary angiogram of the chest was performed with 100 mL Omnipa que-350 intravenous contrast. Additional 3D reconstructions utilizing coronal maximum intensity proje ction (MIP) were performed. Automated exposure control and iterative reconstruction technique were em ployed. The dose-length product was 637.10 mGy-cm. COMPARISON: None FINDINGS: No pulmonary embolism. Sensitivity decreased in the smaller subsegmental pulmonary arteries in the ba silar segments of the bilateral lower lobes and in the perihilar regions due to respiratory motion. M inimal dependent atelectasis in the bilateral lower lobes. No pneumonia, pulmonary edema or pleural e ffusion.Heart size is normal. Atherosclerotic coronary artery calcifications. No pericardial effusion . Thoracic aorta is normal in caliber with no dissection. No pathologically enlarged thoracic lymphad enopathy. Small sliding-type hiatal hernia. Several tiny splenic calcific lesions consistent with old granulomatous disease. Couple larger partially visualized left renal cysts which measure at least 7. 5 and 4.1 cm in maximal diameters. Mild to moderate thoracic spondylosis. C5-C6 and C6-7 anterior spi nal fusion with interbody bone graft cages. IMPRESSION: 1. No pulmonary embolism or other acute cardiopulmonary disease. Sensitivity decreased in some of the smaller subsegmental pulmonary arteries due to moderate amount of respiratory motion in several port ions of the lung. 2. Small sliding-type hiatal hernia. Reviewed, dictated and finalized at location A. IMPRESSION: 1. No pulmonary embolism or other acute cardiopulmonary disease. Sensitivity de creased in some of the smaller subsegmental pulmonary arteries due to moderate amount of respiratory motion in several portions of the lung. 2. Small sliding-type hiatal hernia.
--- NOTE | 2023-10-01 19:15 | ECG_ITS ---
SEE SCANNED COPY FOR CONFIRMED REPORT MTDD
--- NOTE | 2023-10-01 19:47 | ED.RECABL ---
HPI - Recheck/Abnormal Lab/Rx General Chief Complaint: Recheck/Abnormal Lab/Rx Stated Complaint: elevated BP Time Seen by Provider: 10/01/23 19:00 History of Present Illness HPI narrative: Patient has history of high blood pressure, he states that for the last 2 days he has noticed pressure was quite high at home to the 170s to 180s. He has been dealing with a recent cough for the last 2 weeks and just finished antibiotic, overall he been feeling slightly better, he had and mild shortness of breath. No chest pain he was worried about his blood pressure being high because he had a stroke several months ago and was told that if blood pressure was too high he needed to come into the hospital. He is taking all medications as prescribed Related Data Home Medications Medication Instructions Recorded Confirmed aspirin 81 mg tablet,delayed 81 mg PO DAILY 10/09/21 07/14/23 release (Adult Aspirin Regimen) amlodipine 5 mg tablet 5 mg PO DAILY 03/15/23 07/14/23 doxazosin 4 mg tablet 4 mg PO DAILY 03/15/23 07/14/23 hydrochlorothiazide 25 mg tablet 25 mg PO DAILY 03/15/23 07/14/23 metformin 500 mg tablet,extended 500 mg PO DAILY 03/15/23 07/14/23 release 24 hr metoprolol succinate 100 mg 100 mg PO DAILY 03/15/23 07/14/23 tablet,extended release 24 hr Allergies Allergy/AdvReac Type Severity Reaction Status Date / Time acetazolamide AdvReac Unknown Unknown Verified 10/01/23 17:40 Review of Systems Review of Systems: All systems reviewed & are unremarkable except as noted in HPI and below PMFSH Past Medical History Medical History (Updated 10/01/23 @ 21:05 by Xenia Fu MD) Acute CVA (cerebrovascular accident) (03/2023) Essential (primary) hypertension Pure hypercholesterolemia, unspecified Type 2 diabetes mellitus with diabetic polyneuropathy Surgical History Surgical History (Updated 03/15/23 @ 13:43 by Gunjan Morrison PA-C) History of appendectomy History of carpal tunnel release History of cervical spinal surgery (2010) C5 through C7 Family History Family History Father Acute myocardial infarction Lung cancer Mother Diabetes mellitus Social History Social History (Updated 03/15/23 @ 13:44 by MARK Jones Social History: Surrogate medical decision maker: Lorna Gray, spouse. Code status: Full code. Smoking status: Never smoker Second hand tobacco smoke exposure: No Alcohol intake: never Substance use: never Substance use type: does not use Lack of Transportation: No Lack of Food: Never True Current Housing: I Have Housing Concerned About Future Housing: No Difficulty Paying Gas/Electric Bills: No Difficulty Paying for Meds: No Currently Unemployed: No Education: High School Diploma/GED Difficulty w/ Childcare or Family Care: No Living arrangements: with family Occupation/Education: retired Spiritual care concerns: No Agree to blood products: Yes Exam Narrative: EXAMINATION OF ORGAN SYSTEMS/BODY AREAS: Constitutional: Vital signs per nursing GENERAL:[No acute distress, non-toxic appearing.] HEAD: Normal with no signs of head trauma. EYES: EOMI, conjunctiva normal ENT: Hearing grossly intact LUNGS: Nonlabored breathing. Clear to auscultation bilaterally HEART: [Regular rate and rhythm] ABD: [Soft], [nontender to palpation] EXT: Normal range of motion SKIN: [No rashes or lesions.] NEURO: [Alert and oriented x 3. No gross focal sensory or strength deficits.] PSYCH: Normal affect Course Vital Signs Vital signs: Vital Signs Temperature 97.7 F 10/01/23 17:49 Pulse Rate 64 10/01/23 17:49 Respiratory Rate 18 10/01/23 17:49 Blood Pressure 147/105 H 10/01/23 17:49 Pulse Oximetry 97 10/01/23 17:49 Oxygen Delivery Room Air 10/01/23 17:49 Temperature 98.2 F 10/01/23 21:01 Pulse Rate 63 10/01/23 21:01 Respiratory Rate 18 10/01/23 21
[2023-10-01 20:35] LABS: Basophils Percent Auto 0.3 % (0.2-1.2); Eosinophils Absolute Auto 0.1 K/mm3 (0-0.3); Eosinophils Percent Auto 1.6 % (0-4.4); Hematocrit 43.2 % (42.0-52.0); Hemoglobin 14.9 g/dL (14.0-18.0); Immature Granulocyte Absolute 0.08 K/mm3 (0.00-0.031); Immature Granulocyte Percent A 0.9 % (0-0.5); Lymphocytes Absolute Auto 1.94 K/mm3 (0.9-3.2); Lymphocytes Percent Auto 22.1 % (18.3-44.2); Mean Corpuscular HGB Conc 34.5 g/dl (32-36); Mean Corpuscular Volume 86.9 fl (80-100); Mean Platelet Volume 9.9 fl (7.4-10.4); Monocytes Absolute Auto 0.8 K/mm3 (0.1-0.6); Neutrophils Absolute Auto 5.8 K/mm3 (1.3-6.7); Neutrophils Percent Auto 66.1 % (45.5-73.1); Platelet Count Result 276 k/mm3 (150-375); Red Blood Count 4.97 M/mm3 (4.6-6.20); Red Cell Distribution Width 12.8 % (11.5-14.5); White Blood Count 8.8 K/mm3 (4.5-10.0)
[2023-10-01 20:46] LABS: Anion Gap 5 mmol/L (4-12); Blood Urea Nitrogen 16 mg/dL (9-20); Calcium 9.1 mg/dL (8.4-10.2); Carbon Dioxide 28 mmol/L (22-30); Chloride 103 mmol/L (98-107); Estimated CRCL calculation 87 ml/min; Estimated Glomerular Filt Rate > 60; Glucose 155 mg/dL (65-110); Potassium 3.5 mmol/L (3.4-5.0); Sodium 136 mmol/L (137-145)
[2023-10-01] MEDS: RIVAROXABAN 20 MG TABLET PO (21:29)
== END 2023-10-01 22:44 | disposition home or self-care (01) ==
PROVIDERS: Emergency Provider Emergency Medicine; PCP Family Medicine Adolescent Medicine
DX: I48.92 Unspecified atrial flutter (principal); I10 Essential (primary) hypertension; E78.00 Pure hypercholesterolemia, unspecified; E11.42 Type 2 diabetes mellitus with diabetic polyneuropathy; R00.0 Tachycardia, unspecified; R94.31 Abnormal electrocardiogram [ECG] [EKG]; K44.9 Diaphragmatic hernia without obstruction or gangrene; Z86.73 Personal history of transient ischemic attack (TIA), and cerebral infarction without residual deficits; Z79.82 Long term (current) use of aspirin; Z79.84 Long term (current) use of oral hypoglycemic drugs; Z79.899 Other long term (current) drug therapy
CPT/HCPCS: 36415; 71045; 71275; 80048; 85025; 93005; 99284; A9270; Q9967

== ENCOUNTER 2023-10-03 10:01 | Emergency (ER) | payer MEDICARE, SELFPAY ==
[2023-10-03] VITALS (28 sets, daily range): BP systolic 92–136; BP diastolic 70–86; PULSE 62–84; RESP 11–27; TEMP 36.6; O2SAT 96–99
--- NOTE | ~2023-10-03 | XR_ITS ---
EXAMINATION: XR chest 2V DATE: 10/03/2023 10:37 INDICATION: Shortness of breath. TECHNIQUE: Frontal and lateral views of the chest were obtained. COMPARISON: Chest single view 10/01/2023, chest CT 10/01/2023 FINDINGS: There is no pneumonia, pleural effusion, or pneumothorax. The heart size is normal. There a re changes of anterior fusion procedure in cervical spine. IMPRESSION: 1. No acute cardiopulmonary disease. Reviewed, dictated and finalized at location E.
--- NOTE | 2023-10-03 10:06 | ECG_ITS ---
SEE SCANNED COPY FOR CONFIRMED REPORT MTDD
[2023-10-03 10:26] LABS: Basophils Percent Auto 0.4 % (0.2-1.2); Eosinophils Absolute Auto 0.1 K/mm3 (0-0.3); Hematocrit 45.8 % (42.0-52.0); Hemoglobin 15.9 g/dL (14.0-18.0); Immature Granulocyte Absolute 0.05 K/mm3 (0.00-0.031); Immature Granulocyte Percent A 0.5 % (0-0.5); Mean Corpuscular HGB Conc 34.7 g/dl (32-36); Mean Corpuscular Volume 86.4 fl (80-100); Mean Platelet Volume 10.2 fl (7.4-10.4); Monocytes Absolute Auto 0.7 K/mm3 (0.1-0.6); Monocytes Percent Auto 7.6 % (2.6-8.5); Neutrophils Percent Auto 74.5 % (45.5-73.1); Platelet Count Result 305 k/mm3 (150-375); Red Cell Distribution Width 13.1 % (11.5-14.5); White Blood Count 9.4 K/mm3 (4.5-10.0)
[2023-10-03 10:36] LABS: Alanine Aminotransferase 84 U/L (6-50); Albumin Level 4.3 g/dL (3.5-5.1); Alkaline Phosphatase 76 U/L (38-126); Anion Gap 10 mmol/L (4-12); Aspartate Amino Transferase 61 U/L (17-59); Bilirubin,Total 1.3 mg/dL (0.2-1.3); Blood Urea Nitrogen 16 mg/dL (9-20); Calcium 9.4 mg/dL (8.4-10.2); Carbon Dioxide 26 mmol/L (22-30); Chloride 102 mmol/L (98-107); Estimated CRCL calculation 70 ml/min; Estimated Glomerular Filt Rate > 60; Glucose 226 mg/dL (65-110); Potassium 3.4 mmol/L (3.4-5.0); Sodium 138 mmol/L (137-145)
--- NOTE | 2023-10-03 11:20 | ED.GENADULT ---
HPI - General Adult General Chief complaint: Shortness of Breath/Dyspnea Stated complaint: SOB Time Seen by Provider: 10/03/23 10:11 History of Present Illness HPI narrative: Patient is a 72-year-old male who presents to the emergency department this morning complaining of shortness of breath. Patient was seen at our facility on Wednesday and discharged after being started on Xarelto. Patient states that for the past week even before coming here on Wednesday he has been having this shortness of breath, generalized weakness and states that yesterday he had an episode of diarrhea. Patient states that 10 days ago he contacted his family doctor due to a cold and was started on an antibiotic for 10 days. Patient states that despite finishing the antibiotic he still feels sick. He admits that there are some sick contacts at home. Patient to go home COVID test yesterday which was negative. He denies any fevers at home but admits to having chills. He is currently denying any chest pain, denies any nausea or vomiting and denies any abdominal pain. No additional symptoms or concerns at this time. Related Data Home Medications Medication Instructions Recorded Confirmed aspirin 81 mg tablet,delayed 81 mg PO DAILY 10/09/21 07/14/23 release (Adult Aspirin Regimen) amlodipine 5 mg tablet 5 mg PO DAILY 03/15/23 07/14/23 doxazosin 4 mg tablet 4 mg PO DAILY 03/15/23 07/14/23 hydrochlorothiazide 25 mg tablet 25 mg PO DAILY 03/15/23 07/14/23 metformin 500 mg tablet,extended 500 mg PO DAILY 03/15/23 07/14/23 release 24 hr metoprolol succinate 100 mg 100 mg PO DAILY 03/15/23 07/14/23 tablet,extended release 24 hr Allergies Allergy/AdvReac Type Severity Reaction Status Date / Time acetazolamide AdvReac Unknown Unknown Verified 10/01/23 17:40 Review of Systems Review of Systems: All systems are reviewed and are negative unless stated otherwise in the HPI. [facility] Past Medical History Medical History Acute CVA (cerebrovascular accident) (03/2023) Essential (primary) hypertension Pure hypercholesterolemia, unspecified Type 2 diabetes mellitus with diabetic polyneuropathy Surgical History Surgical History History of appendectomy History of carpal tunnel release History of cervical spinal surgery (2010) C5 through C7 Family History Family History Father Acute myocardial infarction Lung cancer Mother Diabetes mellitus Social History Social History Social History: Surrogate medical decision maker: Lorna Gray, spouse. Code status: Full code. Smoking status: Never smoker Second hand tobacco smoke exposure: No Alcohol intake: never Substance use: never Substance use type: does not use Lack of Transportation: No Lack of Food: Never True Current Housing: I Have Housing Concerned About Future Housing: No Difficulty Paying Gas/Electric Bills: No Difficulty Paying for Meds: No Currently Unemployed: No Education: High School Diploma/GED Difficulty w/ Childcare or Family Care: No Living arrangements: with family Occupation/Education: retired Spiritual care concerns: No Agree to blood products: Yes Exam Narrative: General: Alert, awake, afebrile, in no acute distress. HEENT: PERRL, no rhinorrhea, no post nasal drip, oropharynx clear. Cardiovascular: Regular rate and rhythm, no murmurs, rubs or gallops, no peripheral edema. Respiratory: Clear to auscultation bilaterally, no tachypnea, no wheezing, no rhonchi, no rubs, no respiratory distress. Abdomen: Soft, nontender, nondistended, no rebound, no guarding, no peritoneal signs. Musculoskeletal: No joint swelling or deformity, normal muscle tone. Skin: No rashes or petechia, no signs of infection. Neurological: Alert and
[2023-10-03 11:34] LABS: NT Pro B Type Natriuretic Pept 826 pg/mL (19.9-100); Troponin I < 0.012 ng/mL (0.000-0.034)
[2023-10-03 12:55] LABS: Influenza A QL RT-PCR Negative (Negative); Influenza B QL RT-PCR Negative (Negative); RSV RNA, RT-PCR Negative (Negative); SARS-CoV-2 RNA PCR Negative (Negative)
== END 2023-10-03 13:23 | disposition home or self-care (01) ==
PROVIDERS: Emergency Provider Emergency Medicine; PCP Family Medicine Adolescent Medicine
DX: R06.02 Shortness of breath (principal); Z20.822 Contact with and (suspected) exposure to COVID-19; I10 Essential (primary) hypertension; E78.5 Hyperlipidemia, unspecified; E11.42 Type 2 diabetes mellitus with diabetic polyneuropathy; Z79.84 Long term (current) use of oral hypoglycemic drugs; Z86.73 Personal history of transient ischemic attack (TIA), and cerebral infarction without residual deficits
CPT/HCPCS: 36415; 71046; 80053; 83880; 84484; 85025; 87637; 93005; 99284

== ENCOUNTER 2023-10-19 07:33 | Outpatient (CLI) | payer MEDICARE, SELFPAY ==
--- NOTE | 2023-10-19 07:38 | ECHO_ITS ---
Patient Info Name: Bi Gray Age: 72 years : 1950 Gender: Male Ht: 74 in Wt: 245 lbs BSA: 2.44 m2 HR: 74 bpm BP: 148 / 92 mmHg Heart Rhythm: Sinus Rhythm Technical Quality: Fair Exam Date: 10/19/2023 7:52 AM Exam Location: Echo Lab Patient Status: Outpatient Admit Date: 10/19/2023 Staff Ordering Physician: Dion Oviedo MD Repeater Chief: Tonja Christopher RDCS Attending Provider: Dion Oviedo MD Referring Physician: Ivelisse OVIEDO; Exam Type: CA echo doppler color flow Study Info Indications I48.0 - Paroxysmal atrial fibrillation Complete two-dimensional, color flow and Doppler transthoracic echocardiogram is performed. Summary 1. Complete two-dimensional, color flow and Doppler transthoracic echocardiogram is performed. 2. Left ventricular chamber dimension is normal. 3. Left ventricular systolic function is normal, estimated at 65-70%. 4. There is mild concentric increased left ventricular wall thickness. 5. The left ventricular diastolic function is normal. 6. Tissue doppler E/e' is not performed. 7. Left atrial chamber dimension is moderately enlarged. 8. There is mild aortic valve sclerosis. 9. There is trace tricuspid valve regurgitation. 10. No pulmonary hypertension, estimated pulmonary arterial systolic pressure is 21 mmHg. 11. The aortic root size at the sinus of Valsalva is borderline dilated at 4.0 cm. 12. There is trivial pericardial effusion. Left Ventricle Tissue doppler E/e' is not performed. Left ventricular chamber dimension is normal. Left ventricular systolic function is normal, estimated at 65-70%. There is mild concentric increased left ventricular wall thickness. The left ventricular diastolic function is normal. Right Ventricle Right ventricular systolic function is normal and with normal TAPSE 2.7 cm. Right ventricular chamber dimension is normal. Left Atria Left atrial chamber dimension is moderately enlarged. Right Atria Right atrial chamber dimension is normal. Aortic Valve The aortic valve is trileaflet. There is mild aortic valve sclerosis. There is no aortic valve stenosis. There is no aortic valve regurgitation. Pulmonic Valve There is no pulmonic regurgitation. Mitral Valve There is no mitral valve stenosis. There is no mitral valve regurgitation. Tricuspid Valve There is trace tricuspid valve regurgitation. No pulmonary hypertension, estimated pulmonary arterial systolic pressure is 21 mmHg. Pericardium/Pleural There is trivial pericardial effusion. Inferior Vena Cava Normal inferior vena cava with >50% collapse upon inspiration consistent with normal right atrial pressure, 5 mmHg. Aorta The aortic root size at the sinus of Valsalva is borderline dilated at 4.0 cm. Left Ventricular Outflow Tract Name Value Normal LVOT 2D LVOT Diameter 2.1 cm LVOT Doppler LVOT Peak Gradient 4 mmHg LVOT Mean Gradient 2 mmHg LVOT VTI 19 cm LVOT VTI/AV VTI Ratio 0.8 LVOT Stroke Volume 65 ml LVOT CO 12.6 l/min LVOT CI
== END 2023-10-19 07:34 | disposition home or self-care (01) ==
LOC: ANHCARD 07:36
PROVIDERS: PCP Family Medicine Adolescent Medicine; Visit Provider Family Medicine Adolescent Medicine
DX: I10 Essential (primary) hypertension (principal); I48.0 Paroxysmal atrial fibrillation; I51.89 Other ill-defined heart diseases; R06.00 Dyspnea, unspecified
CPT/HCPCS: 93306

== ENCOUNTER 2024-12-01 00:29 | Day surgery (SDC) | payer MEDICARE, SELFPAY ==
[2024-11-20 08:51] VITALS: BMI 29.2
--- NOTE | 2024-11-27 14:43 | PC.NURSE ---
Spoke with _wife, Lorna__ regarding medication _xarelto__. _Lorna_verbalizes understanding that the last dose is to be taken on _11/27/24_ and the Endoscopist will instruct them when to restart after the procedure. Lorna denies that the patient, Bi has had any palpitations indicating Afib. and denies chest pain, sob or any cardiac symptoms currently.
--- OUTSIDE RECORDS SUMMARY | 2024-12-01 00:31 | XMS_ITS | Clinical Summary ---
Author Organization [facility] Address [facility] [place] [address] Care Team Providers Care Furnace Mechanic Name Role Phone Dion Oviedo MD Primary Care Prov ider Allergies No known active allergies Medications amLODIPine (NORVASC) 5 mg tablet amlodipine 5 mg tablet Active atorvastatin (LIPITOR) 40 mg tablet 1 Active doxazosin (CARDURA) 4 mg tablet doxazosin 4 mg tablet Active hydroCHLOROthia zide (HYDRODIURIL) 25 mg tablet Take 25 mg by mouth daily 1 Active HYDROcodone-devin taminophen (NORCO) 5-325 mg per tablet Take 1-2 tablets by mouth every 4 (four) hours as needed 1 Active lisinopriL (PRINIVIL,ZESTR IL) 40 mg tablet daily Active metFORMIN XR (GLUCOPHAGE XR) 500 mg 24 hr tablet metformin ER 500 mg tablet,extended release 24 hr Active methocarbamoL (ROBAXIN) 750 mg tablet Take 750 mg by mouth every 6 (six) hours as needed 1 Active metoprolol XL (TOPROL-XL) 100 mg 24 hr tablet metoprolol succinate ER 100 mg tablet,extended release 24 hr Active potassium chloride ER (potassium chloride ER) 10 mEq CR tablet potassium chloride ER 10 mEq tablet,extended release Active aspirin 81 mg enteric coated tablet Take 81 mg by mouth daily Active esomeprazole DR (NexIUM) 40 mg capsuleIndicati ons:once every other day Take 40 mg by mouth daily before breakfast Active ibuprofen (ibuprofen) 200 mg tab/cap Take by mouth every 6 (six) hours as needed for pain Active Active Problems Problem Noted Date Diagnosed Date Obstructive sleep apnea 10/16/2020 Psychophysiological insomnia 10/16/2020 Parasomnia 10/16/2020 Overweight 10/16/2020 Nonsmoker 10/16/2020 Essential hypertension 10/16/2020 Surgical History Surgery Date Site/Laterality Comments NO PAST SURGERIES Medical History Medical History Date Comments High blood pressure High cholesterol Diabetes (HCC) Social History Tobacco Use Types Packs/Day Years Used Date Smoking Tobacco: Never Smokeless Tobacco: Never Personal Safety Answer Date Recorded Getting School Help Needed Not on file 07/24 Sex and Gender Information Value Date Recorded Sex Assigned at Not on file 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 Gender Identity Not on file Sexual Orientation Not on file Obstetrics History Last Filed Vital Signs Vital Sign Reading Time Taken Comments Blood Pressure 138/84 10/16/2020 10:04 AM CDT Pulse 60 10/16/2020 10:04 AM CDT Temperature 36.4 C (97.5 F) 10/16/2020 10:04 AM CDT Respiratory Rate 20 10/16/2020 10:04 AM CDT Oxygen Saturation 97% 10/16/2020 10:04 AM CDT Inhaled Oxygen Concentration - - Weight 117 kg (258 lb) 10/16/2020 10:04 AM CDT Height 193 cm (6' 4) 10/16/2020 10:04 AM CDT Body Mass Index 31.4 10/16/2020 10:04 AM CDT Plan of Treatment Not on file Insurance MEDICARE [facility] MEDICARE SUPPLEMENT INSURANCE [facility] MDCR HMO REF [facility] MEDICARE ADVANTAGE Care Teams Furnace Mechanic Relationship Specialty Start Date End Date Dion Oviedo MD [address] [place] [address] [facility] - General 07/06/18
--- OUTSIDE RECORDS SUMMARY | 2024-12-01 00:31 | XMS_ITS | Referral Summary ---
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 Gender Identity Not on file Sexual Orientation Not on file Last Filed Vital Signs Vital Sign Reading [...] of Treatment Not on file Insurance MEDICARE [facility] Address: [address] [address] [place] [address] [facility] MEDICARE SUPPLEMENT INSURANCE [facility] MDCR HMO REF [facility] MEDICARE Address: [address] [address] [place] [address] [facility] MEDICARE ADVANTAGE [facility] MEDICARE Address: [address] [address] [place] [address] Care Teams Private Branch Exchange Repairer Relationship Specialty Start Date End Date Dion Oviedo MD [address] [place] [address] PCP - General 07/06/18
--- OUTSIDE RECORDS SUMMARY | 2024-12-01 00:31 | XMS_ITS | Encounter Summary ---
Author Organization [facility] Address [facility] [facility] [place] [address] Care Team Providers Care Pharmacognosist Name Role Phone Dion Oviedo MD Primary Care Provider + Encounter Details Date Type Department Care Team (Late st Contact Info) Description 01/30/2021 Lab Requisition [facility] DermPath Lab [address] [facility] [place] [address] Addy Saunders MD [address] [place] [address] Social History Tobacco Use Types Packs/Day Years Used Date Smoking Tobacco: Never Smokeless Tobacco: Never Alcohol Use Standard Drinks/Week Comments Yes 0 (1 standard drink = 0.6 oz pur e alcohol) Sex and Gender Information Value Date Recorded Sex Assigned at Not on file 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 Gender Identity Not on file Sexual Orientation Not on file documented as of this encounter Plan of Treatment Not on file documented as of this encounter Procedures Procedure Name Priority Date/Time Associated Diagnosis Comments DERMATOPATHOLOGY Routine 01/29/2021 12:0 0 AM CDT documented in this encounter Results * DERMATOPATHOLOGY (01/29/2021 12:00 AM CDT) Case Report Dermatopathology Report Case: [id number] Authorizing Provider: Addy Saunders MD Collected: 01/29/2021 12:00 AM Ordering Location: [facility] DermPath Lab Received: 01/30/2021 10:08 AM Pathologist: Oksana Martínez MD Specimen: Skin, right dorsal forearm 3:00 PM CDT DERMATOPATHOLOGY LABORATORY Amended Report Referring provider updated. At the request of the clinician change in date of collection to 01/29/21. 3:00 PM CDT DERMATOPATHOLOGY LABORATORY Final Diagnosis Specimen A. SKIN, right dorsal forearm: DERMAL SCAR RESIDUAL SQUAMOUS CELL CARCINOMA NOT IDENTIFIED (L90.5) 3:00 PM CDT DERMATOPATHOLOGY LABORATORY Amendment electronically signed by Oksana Martínez MD on 02/07/2021 at 1500 CDT Amendment electronically signed by Oksana Martínez MD on 02/06/2021 at 1818 CDT at 1344 CDT Clinical History Bx proven SCC. 3:00 PM CDT DERMATOPATHOLOGY LABORATORY Gross Description Specimen A: Received is one formalin filled container labeled with the patient's name and designated right dorsal forearm. The specimen consists of a non-oriented ellipse of skin measuring [id number]. The epidermal surface consists of centrally located 10x6mm previous biopsy site. The margin is inked green. The 12 o'clock and 6 o'clock tips are submitted in cassette 1. The remainder of the ellipse is serially sectioned and submitted in cassette 2-3. Jar 0. 3:00 PM CDT DERMATOPATHOLOGY LABORATORY Microscopic Description Specimen A. SKIN, right dorsal forearm: There are fibroblasts and collagen bundles oriented parallel to the skin surface. There are elongated blood vessels, some of which are oriented perpendicular to the skin surface. No residual squamous cell carcinoma is identified. 3:00 PM CDT DERMATOPATHOLOGY LABORATORY Disclaimer An external and internal positive and negative controls are appropriate for the histochemical, immunohistochemical and immunofluorescence stain(s) in this case (if any), except where stated explicitly. The performance characteristics of the stain(s) cited in this report were developed and its performance characteristic determined by the Dermatopathology Laboratory at [facility], directed by Dr. Carlos Martínez. These tests need not be, and therefore are not, approved by the [place] Food and Drug Administration. The tests are used for clinical purposes. Billing Codes Specimen Charges Stain Charges 60048 1 1 3:00 PM CDT DERMATOPATHOLOGY LABORATORY Embedded Images 1 3:00 PM CDT DERMATOPATHOLOGY LABORATORY Pathology/Cytolog y TISSUE SPECIMEN FROM SKIN / Unknown 01/29/2021 01/30/2021 10:08 AM CDT Addy Saunders MD LAB - PATHOLOGY/CYTOLOGY ORDERAB LES Edited Result - Final DERMATOPATHOLOGY LABORATORY [facility] - Department of Dermatology [facility] Medicine [address] [place] [address], [address] [phone] documented in this encounter Visit Diagnoses Not on filedocumented in this encounter Care Teams Pharmacognosist Relationship Specialty Start Date End Date Dion Oviedo MD [address] [address] PCP - General 07/31/10 documented as of this encounter
--- OUTSIDE RECORDS SUMMARY | 2024-12-01 00:31 | XMS_ITS | Clinical Summary ---
Author Organization [facility] Address [address] [place] [address] Care Team Providers Care Traffic Manager Name Role Phone Dion Oviedo MD Primary Care Provider [phone]- [phone] Social History Tobacco Use Types Packs/Day Years Used Date Smoking Tobacco: Never Assessed Sex and Gender Information Value Date Recorded Sex Assigned at Not on file Legal Sex Male 7:45 PM CDT Gender Identity Not on file Sexual Orientation Not on file Plan of Treatment Health Maintenance Due Date Last Done Comments Kidney Health Evaluation 1950 Diabetes: Retinopathy Eye Exam 1966 Hepatitis C 1966 DTaP, Tdap and Td Vaccines (1 - Tdap) 11/08/1967 Zoster Vaccines (1 of 2) 1998 Annual Medicare Wellness Visit 2013 Pneumococcal Vaccine: 50+ Years (2 of 2 - PPSV23) 09/08/2018 07/14/2018 RSV Immunization or 60+ Years (1 - 1-dose 75+ series) 11/08/2023 COVID-19 Vaccine ( - season) 2024 Hemoglobin A1C 01/03/2025 07/06/2024, 02/08, 08/04/2022, Additional history exists Lipid Panel 07/06/2025 07/06/2024, 02/08, 11/23/2023, Additional history exists Meningococcal B Vaccine Aged Out No l onger eligible based on patient's age to complete this topic Meningococcal Vaccine Aged Out No trudy bhumi eligible based on patient's age to complete this topic RSV Immunizations Under 20 Months Aged Out No longer eligible based on patient's age to complete this topic Procedures Procedure Name Priority Date/Time Associated Diagnosis Comments LIPID PANEL Routine 07/06/2024 7:09 AM SEAT COVER INSTALLER Essential hypertension Pure hypercholesterolemia Type 2 diabetes mellitus with diabetic polyneuropathy ([facility] HHS/HCC) HEMOGLOBIN, GLYCOSYLATED Routine 07/06/2024 7:09 AM SEAT COVER INSTALLER Essential hypertension Pure hypercholesterolemia Type 2 diabetes mellitus with diabetic polyneuropathy ([facility] HHS/HCC) from Last 3 Months or Most Recently Relevant to Health Maintenance Results * (ABNORMAL) HEMOGLOBIN, GLYCOSYLATED (07/06/2024 7:09 AM SEAT COVER INSTALLER) HGB A1C 7.5(H) <5.7 % 07/06/2024 8:37 AM [facility] Comment: INCREASED RISK OF DIABETES <5.7% NON-DIABETES 5.7-6.4% INCREASED RISK FOR FUTURE DIABETES > OR = 6.5 CONSISTENT WITH DIABETES STANDARDS OF MEDICAL CARE IN DIABETES-2010 DIABETES CARE, 33(SUPP 1): S1-S61,2010 ESTIMATED AVG GLUCOSE 169 mg/dL 07/06/2024 8:37 AM [facility] 07/06/2024 7:09 AM SEAT COVER INSTALLER us Dion Oviedo MD LABORATORY Final Resu lt [facility] [address] [place] [id number], * (ABNORMAL) LIPID PANEL (07/06/2024 7:09 AM SEAT COVER INSTALLER) CHOLESTEROL 150 <200.0 MG/DL 07/06/2024 2:54 PM [facility] TRIGLYCERIDES 171(H) <150 MG/DL 07/06/2024 2:54 PM [facility] HDL 37(L) >40.0 MG/DL 07/06/2024 2:54 PM [facility] LDL (CALCULATED) 79 <100 MG/DL 07/06/2024 2:54 PM SEAT COVER INSTALLER [facility] NON HDL CHOLESTEROL 113 <130 MG/DL 07/06/2024 2:54 PM [facility] CHOL/HDL RATIO 4.1 0.0 - 4.5 07/06/2024 2:54 PM SEAT COVER INSTALLER [facility] VLDL CALCULATION 34 5 - 55 MG/DL 07/06/2024 2:54 PM SEAT COVER INSTALLER [facility] LIPID INTERPRETATION 07/06/2024 2:54 PM SEAT COVER INSTALLER [facility] Comment: NIH CONCENSUS REPORT RECOMMENDATIONS: ADULT CHILD LOW RISK: CHOLESTEROL <200 <170 TRIGLYCERIDE <150 --- HDL >=60 --- LDL <100 <110 BORDERLINE: CHOLESTEROL 200-239 170-199 TRIGLYCERIDE 150-199 --- HDL 40-59 --- LDL 100-159 110-129 HIGH RISK: CHOLESTEROL >=240 >=200 TRIGLYCERIDE >=200 --- HDL <40 --- LDL >=160 >=130 07/06/2024 7:09 AM SEAT COVER INSTALLER Dion Oviedo MD LABORATORY Final Resu lt [facility] [address] [place] [address], from Last 3 Months or Most Recently Relevant to Health Maintenance Insurance [facility] Care Teams Traffic Manager Relationship Specialty Start Date End Date Dion Oviedo MD [address] [address] PCP - General FAMILY PRACTICE 05/22/19
--- OUTSIDE RECORDS SUMMARY | 2024-12-01 00:31 | XMS_ITS | Clinical Summary ---
Author Organization [facility] Address [address] [place] [address] Care Team Providers Care Continuous Drier Helper Name Role Phone Dion Oviedo MD Primary Care Provider + Source Comments [facility],non-owned Affiliates and Associated Physician Practices is amultiple site organization consisting of ambulatory clinics and hospital sitesin [place], [place], [place] and [place]. This disclosure is being madepursuant to the Care Everywhere program and may not contain all information available regarding this patient. Last updated [facility] Allergies No known active allergies Medications * Be aware that medications may not be up to date on this document. Alwaysverify current medications with the patient. hydrochlorothiaz adia (HYDRODIURIL) 25 MG tablet daily. Active lisinopril (PRINIVIL; ZESTRIL) 40 MG tablet daily. Active simvastatin (ZOCOR) 80 MG tablet daily. Active hydrocodone-acet aminophen (NORCO) 5-325 MG tablet Take 1-2 Tabs by mouth every 4 hours as needed for Pain. 40 Tab 1 08/14/2010 Active methocarbamol (ROBAXIN) 750 MG tablet Take 1 Tab by mouth every 6 hours as needed for Muscle Spasms. 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 Gender Identity Not on file Sexual Orientation Not on file Last Filed Vital Signs Vital Sign Reading Time Taken Comments Blood Pressure 120/76 08/31/2016 10:55 AM CDT Pulse 61 08/31/2016 10:55 AM CDT Temperature 36.7 C (98.1 F) 08/31/2016 10:55 AM CDT Respiratory Rate 20 08/31/2016 10:55 AM CDT Oxygen Saturation 98% 08/31/2016 10:55 AM CDT Inhaled Oxygen Concentration - - Weight 113.4 kg (250 lb) 08/31/2016 7:42 AM CDT Height 193 cm (6' 4) 08/31/2016 7:42 AM CDT Body Mass Index 30.43 08/31/2016 7:42 AM CDT Plan of Treatment Health Maintenance Due Date Last Done Comments HEPATITIS C SCREENING 11/03/1966 DTAP/TDAP/TD VACCINES (1 - Tdap) 11/08/1967 PNEUMOCOCCAL VACCINE 50+ (1 of 1 - PCV) 1998 ZOSTER VACCINE (1 of 2) 1998 Respiratory Syncytial Virus (RSV) Vaccine Pt: or over 60 yrs (1 - 1-dose 75+ series) 11/08/2023 COVID-19 VACCINE (1 - 2023-2 5 season) 2024 DEPRESSION SCREENING 05/10/2024 INFLUENZA VACCINE (#1) 2025 HEPATITIS B VACCINE Aged Out No longe r eligible based on patient's age to complete this topic HIB VACCINE Aged Out No longer eligi ble based on patient's age to complete this topic HPV VACCINE Aged Out No longer eligi ble based on patient's age to complete this topic MENINGOCOCCAL (Group B) VACC INE SHARED DECISION-MAKING Aged Out No longer eligibl e based on patient's age to complete this topic MENINGOCOCCAL GROUPS A/C/Y/W VACCINE Aged Out No longer eligible b ased on patient's age to complete this topic Insurance MEDICARE Advance Directives * Full Code (Latest Code Status on File) Date Activated Date Inactivated Comments 08/14/2010 1:55 PM 08/15/2010 6:25 AM Care Teams Continuous Drier Helper Relationship Specialty Start Date End Date Dion Oviedo MD [address] [address] PCP - General 07/31/10
[2024-12-01 11:56] VITALS: BP 170/91; PULSE 77; RESP 18; TEMP 35.9; O2SAT 99
[2024-12-01] MEDS: LACTATED RINGERS 1,000 ML 150 ML IV CONT (12:07)
--- NOTE | 2024-12-01 12:44 | WPDANESEPPF ---
Anes - Initial Pre Proc Eval Procedure: Operation Date: 12/01/24 13:00 Proposed Procedures p Diagnostic Colonoscopy - Negro Nicholas MD Date/Time: 12/01/24 12:44 Surgeon: Negro Nicholas MD Pre Op Diagnosis: Other fecal abnormalities Patient Data Age: 74 Gender: M Height: 1.93 m Weight: 106.2 kg Last Vital Signs Temp 35.9 C L 12/01/24 11:56 Pulse 77 12/01/24 11:56 Resp 18 12/01/24 11:56 BP 170/91 H 12/01/24 11:56 Pulse Ox 99 12/01/24 11:56 O2 Del Method Room Air 12/01/24 11:56 Allergies Allergy/AdvReac Type Severity Reaction Status Date / Time spironolactone AdvReac Intermediate Other Verified 12/01/24 11:52 acetazolamide AdvReac Unknown Unknown Verified 12/01/24 11:52 Home Medications ?Medication ?Instructions ?Recorded ?Confirmed ?Type aspirin 81 mg tablet,delayed 81 mg PO DAILY 10/09/21 12/01/24 History release (Adult Aspirin Regimen) magnesium aspart,citrate,oxide 400 mg PO DAILY 02/28/24 12/01/24 History omega 3-gox-gvt-fish oil 1,000 mg 1 cap PO DAILY 02/28/24 12/01/24 History (120 mg-180 mg) capsule (Fish Oil) pantoprazole 40 mg tablet,delayed See Rx Instructions .Route 03/29/24 12/01/24 Rx release .COMPLEX #90 tabs sildenafil 100 mg tablet 100 mg PO DAILY PRN sexual 05/01/24 11/20/24 Rx activity #7 tabs atorvastatin 40 mg tablet See Rx Instructions .Route 05/22/24 12/01/24 Rx .COMPLEX #100 tabs doxazosin 4 mg tablet See Rx Instructions .Route 05/22/24 12/01/24 Rx .COMPLEX #100 tabs metformin 500 mg tablet,extended See Rx Instructions .Route 05/22/24 12/01/24 Rx release 24 hr .COMPLEX #100 tabs rivaroxaban 20 mg tablet (Xarelto) See Rx Instructions .Route 05/22/24 12/01/24 Rx .COMPLEX #100 tabs hydralazine 50 mg tablet 50 mg PO TID #90 tabs 06/28/24 12/01/24 Rx amlodipine 2.5 mg tablet (Norvasc) 2.5 mg PO DAILY #30 tabs 06/30/24 12/01/24 Rx amiloride 5 mg tablet 5 mg PO DAILY #30 tabs 11/15/24 12/01/24 Rx carvedilol 25 mg tablet See Rx Instructions .Route 11/23/24 12/01/24 Rx .COMPLEX #60 tabs Laboratory Tests 12/01/24 12:06 POC Capillary Glucose 114 H mg/dl (65-105) Patient hx anesthesia problems: none Family hx anesthesia problems: none Results Review: All pre-operative results and documents have been reviewed as part of the pre-operative evaluation. [facility] Past Medical History Medical History History of CVA (cerebrovascular accident) 03/2023 Type 2 diabetes mellitus with diabetic polyneuropathy Pure hypercholesterolemia, unspecified Essential (primary) hypertension Surgical History Surgical History History of carpal tunnel release History of cervical spinal surgery (2010) C5 through C7 History of appendectomy Family History Family History Father Acute myocardial infarction Lung cancer Mother Diabetes mellitus Social History Social History Social History: Surrogate medical decision maker: Lorna Gray, spouse. Code status: Full code. Smoking status: Never smoker Second hand tobacco smoke exposure: No Alcohol intake: never Substance use: never Substance use type: does not use Lack of Transportation: No Lack of Food: Never True Current Housing: I Have Housing Concerned About Future Housing: No Difficulty Paying Gas/Electric Bills: No Difficulty Paying for Meds: No Currently Unemployed: No Education: High School Diploma/GED Difficulty w/ Childcare or Family Care: No Living arrangements: with family Occupation/Education: retired Spiritual care concerns: No Agree to blood products: Yes Anes - Eval Final PreProcedure Day of Procedure 12/01/24 12:44 Patient weight: overweight Heart: regular rate and rhythm Lungs: clear to auscultation Airway: Mallampati scale class 1 Neurological: alert and oriented Last oral intake: >/= 8 hours ASA classification: III Emergent: no Anesthetic plan: proceed Anesthesia type and monitoring: general GIVS and standard monitoring Results Review: All pre-operative results and documents have been reviewed as part of the pre-operative evaluation. Informed Consent: The patient's anesthetic plan and its attendant risks and benefits were discussed with the patient/family/POA. Questions were solicited and answers provided to the satisfaction of the patient/family/POA.
--- NOTE | 2024-12-01 12:56 | PM.IMHP ---
H&P: HPI History of Present Illness Date/Time: 12/01/24 12:56 Chief Complaint: Positive Cologuard Narrative: This is the patient's sec colonoscopy. he was found to have a Cologuard positive test.There are no GI symptoms and there is no family history of colorectal cancer. Review of Systems Review of Systems: All systems reviewed & are unremarkable except as noted in HPI and below PMFSH Past Medical History Medical History History of CVA (cerebrovascular accident) 03/2023 Type 2 diabetes mellitus with diabetic polyneuropathy Pure hypercholesterolemia, unspecified Essential (primary) hypertension Surgical History Surgical History History of carpal tunnel release History of cervical spinal surgery (2010) C5 through C7 History of appendectomy Family History Family History Father Acute myocardial infarction Lung cancer Mother Diabetes mellitus Social History Social History Social History: Surrogate medical decision maker: Lorna Gray, spouse. Code status: Full code. Smoking status: Never smoker Second hand tobacco smoke exposure: No Alcohol intake: never Substance use: never Substance use type: does not use Lack of Transportation: No Lack of Food: Never True Current Housing: I Have Housing Concerned About Future Housing: No Difficulty Paying Gas/Electric Bills: No Difficulty Paying for Meds: No Currently Unemployed: No Education: High School Diploma/GED Difficulty w/ Childcare or Family Care: No Living arrangements: with family Occupation/Education: retired Spiritual care concerns: No Agree to blood products: Yes Meds Home Medications and Allergies Home Medications ?Medication ?Instructions ?Recorded ?Confirmed ?Type aspirin 81 mg tablet,delayed 81 mg PO DAILY 10/09/21 12/01/24 History release (Adult Aspirin Regimen) magnesium aspart,citrate,oxide 400 mg PO DAILY 02/28/24 12/01/24 History omega 0-idp-nrx-fish oil 1,000 mg 1 cap PO DAILY 02/28/24 12/01/24 History (120 mg-180 mg) capsule (Fish Oil) pantoprazole 40 mg tablet,delayed See Rx Instructions .Route 03/29/24 12/01/24 Rx release .COMPLEX #90 tabs sildenafil 100 mg tablet 100 mg PO DAILY PRN sexual 05/01/24 11/20/24 Rx activity #7 tabs atorvastatin 40 mg tablet See Rx Instructions .Route 05/22/24 12/01/24 Rx .COMPLEX #100 tabs doxazosin 4 mg tablet See Rx Instructions .Route 05/22/24 12/01/24 Rx .COMPLEX #100 tabs metformin 500 mg tablet,extended See Rx Instructions .Route 05/22/24 12/01/24 Rx release 24 hr .COMPLEX #100 tabs rivaroxaban 20 mg tablet (Xarelto) See Rx Instructions .Route 05/22/24 12/01/24 Rx .COMPLEX #100 tabs hydralazine 50 mg tablet 50 mg PO TID #90 tabs 06/28/24 12/01/24 Rx amlodipine 2.5 mg tablet (Norvasc) 2.5 mg PO DAILY #30 tabs 06/30/24 12/01/24 Rx amiloride 5 mg tablet 5 mg PO DAILY #30 tabs 11/15/24 12/01/24 Rx carvedilol 25 mg tablet See Rx Instructions .Route 11/23/24 12/01/24 Rx .COMPLEX #60 tabs Allergies Allergy/AdvReac Type Severity Reaction Status Date / Time spironolactone AdvReac Intermediate Other Verified 12/01/24 11:52 acetazolamide AdvReac Unknown Unknown Verified 12/01/24 11:52 Vital Signs Vital Signs - 24 hr 12/01/24 11:56 Temperature 96.7 F L Pulse Rate 77 Respiratory Rate 18 Blood Pressure 170/91 H Pulse Oximetry 99 Oxygen Delivery Room Air Exam Const: General: cooperative and healthy appearing Resp: Effort & Inspection: normal respiratory effort and able to speak in complete sentences Auscultation: clear to auscultation bilaterally Cardio: Rate: regular rate Rhythm: regular rhythm GI: Inspection: normal to inspection GI Palp: No No hepatosplenomegaly present Auscultation: normal bowel sounds Rectal Exam: deferred Skin: General skin exam: normal color Psych: Appearance: grossly normal Mental Status: mental status grossly normal Assessment and Plan Assessment and plan (1) Positive colorectal cancer screening using Cologuard test: Onset Date: 11/2024 Code(s): R19.5 - Other fecal abnormalities Status: Acute Assessment and Plan: The patient is deemed a good candidate for the procedure. Consent signed. Will proceed.
--- NOTE | 2024-12-01 13:19 | S_PTH ---
PATIENT: Bi Gray LOC: [facility] U#:[id number] AGE/SX: 74/M ROOM: RE12/01/[address]: Negro Nicholas MD : 1950 BED: DIS: 12/01/2024 SPEC #: [id number] RECD: 12/01/24 13:30 STATUS: CORRINA REQ #: [id number] DONNA: 12/01/24 13:[address]: Negro Nicholas DEPT: [facility] Surgical RECD BY: Nicole Rae MLT, ([facility] [place]) ENTERED: 12/01/24 13:31 SP TYPE: Surgical OTHR DR: Dion Oviedo MD Tissues: A - Colon Polypectomy B - Colon Polypectomy Procedures: Hematoxylin and Eosin Stain Gross and Microscopic Level 4
[2024-12-01 13:21] VITALS: BP 184/143; PULSE 63; RESP 20; O2SAT 99
[2024-12-01 13:31] VITALS: BP 145/73; PULSE 60; RESP 25; O2SAT 100
[2024-12-01 13:41] VITALS: BP 126/84; PULSE 53; RESP 21; O2SAT 99
== END 2024-12-01 13:52 | disposition home or self-care (01) ==
PROVIDERS: PCP Family Medicine Adolescent Medicine; Referring Provider Family Medicine Adolescent Medicine; Visit Provider Internal Medicine Gastroenterology
PROC: 0DJD8ZZ Inspection of Lower Intestinal Tract, Via Natural or Artificial Opening Endoscopic (ICD-10-PCS; CPT 45378; principal; 2024-12-01 13:00)
DX: R19.5 Other fecal abnormalities (principal); D12.4 Benign neoplasm of descending colon; K63.5 Polyp of colon; K64.8 Other hemorrhoids; E11.42 Type 2 diabetes mellitus with diabetic polyneuropathy
CPT/HCPCS: 45385; 82948; 88305; J2003; J2704; J7120